=== PATIENT | female | born 2000 | race Caucasian/White ===

== ENCOUNTER 2025-05-30 14:18 | Outpatient (OUT) | payer OTHER, SELFPAY ==
--- NOTE | 2025-05-30 14:23 | ECG_ITS ---
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
== END 2025-05-30 14:19 | disposition home or self-care (01) ==
LOC: PST 14:21
PROVIDERS: PCP Nurse Practitioner Family; Visit Provider Obstetrics & Gynecology
DX: Z01.810 Encounter for preprocedural cardiovascular examination (principal); N83.299 Other ovarian cyst, unspecified side; R10.2 Pelvic and perineal pain
CPT/HCPCS: 93005

== ENCOUNTER 2025-06-14 09:39 | Day surgery (SDC) | payer OTHER, SELFPAY ==
[2025-05-30 14:45] VITALS: BP 137/82; PULSE 93; TEMP 36.4; O2SAT 100; BMI 38.3
[2025-06-14] VITALS (15 sets, daily range): BP systolic 117–131; BP diastolic 66–80; PULSE 65–82; TEMP 36.3–36.5; O2SAT 96–100; BMI 38.3
[2025-06-14 09:49] LABS: Hematocrit 42.8 % (36.0-48.0); Hemoglobin 14.7 g/dL (12.0-16.0); Immature Granulocytes Abs Auto 0.01 10^3/uL (0.00-0.03); Immature Granulocytes Pct Auto 0.1 % (0.0-0.5); Lymphocytes Absolute Auto 2.6 10^3/uL (1.2-3.8); Mean Corpuscular HGB Conc 34.3 g/dL (29.9-35.2); Mean Corpuscular Hemoglobin 30.7 pg (26.7-34.0); Mean Corpuscular Volume 89.4 fL (81.0-99.0); Platelet Count 381 10^3/uL (150-450); Red Blood Count 4.79 10^6/uL (4.20-5.40); White Blood Count 6.9 10^3/uL (4.0-11.0)
[2025-06-14] MEDS: SILVER SULFADIAZINE 1% CREAM 25 GM TUBE 1 APPLIC TOPICAL (11:54)
--- NOTE | 2025-06-14 13:42 | PM.ONB ---
Brief Operative Note Date of procedure: 06/14/25 Pre-op diagnosis general: pelvic pain, ovarian cyst Post-op diagnosis: same as pre-op Procedure: NAME OF PROCEDURE: robotic assisted laparoscopic salpingectomy with paratubal cyst and hdyrosalpingx PROCEDURE: The patient was taken back to the Operating Room where she was given general anesthesia without difficulty. She was then prepped and draped in the normal sterile fashion after being placed in a dorsal lithotomy position. A wet sponge stick was placed into the patient's vagina. Attention was then turned to the patient's abdomen, where a scalpel was used to make a small infraumbilical incision. The S retractors were then used to dissect the underlying layers until the fascia could be seen. The fascia was then grasped with Jo Ann clamps and tented up. A knife was then used to make a small incision to the fascia. The muscle was identified, at that time two sutures of #0 Vicryl on a GI needle was then used and placed through the fascia. the peritoneum was then identified and entered bluntly. The 10-4 Rhonda was then placed into the patient's abdomen. This was confirmed with direct visualization of the bowel, using the laparoscope. The patient's abdomen was then insufflated using approximately 4 liters of CO2 gas. Survey of the patient's abdomen demonstrated ovaries were normal in appearance as well as both tubes and uterus. A second and third rt and lt lateral robotic ports which were 8 mm in size, was then placed after the skin incision was made under direct visualization . the robotic arms were engaged. survery demonstrated significant adhesions to the anterior abdominal wall, normal appearing tubes, normal appearing ovaries and lt tube, rt largye paratubal cyst and hydrosalpingx, the vessel sealer was used to remove the rt tube and paratubal cyst, Excellent hemostasis was noted. The lateral ports were then moved under direct visualization with excellent hemostasis. All instruments were removed from the patient's abdomen. The fascia was closed using the #0 Vicryl on GI needle. The skin was closed using 4-0 Vicryl subcuticularly. All instruments were removed from the patient's vagina as well. The patient was taken out of the dorsal lithotomy position and placed in the supine position and taken to recovery in stable condition. Sponge, lap and needle counts were correct x2. Anesthesia: GETA Surgeon: David Andrew Archivist Political History: Augusta Tang Estimated blood loss (mL): 5 Pathology: other (rt tube) Condition: stable Disposition: PACU
== END 2025-06-14 16:18 | disposition home or self-care (01) ==
PROVIDERS: PCP Nurse Practitioner Family; Visit Provider Obstetrics & Gynecology
PROC: (CPT 840; principal; 2025-06-14 11:15)
DX: R10.2 Pelvic and perineal pain (principal); N83.8 Other noninflammatory disorders of ovary, fallopian tube and broad ligament; N70.11 Chronic salpingitis; E78.5 Hyperlipidemia, unspecified; G90.A Postural orthostatic tachycardia syndrome [POTS]; F41.9 Anxiety disorder, unspecified; F32.A Depression, unspecified
CPT/HCPCS: 58661; 36415; 84702; 85025; J1100; J1171; J1885; J2250; J2371; J2405; J2704; J3010